=== PATIENT | male | born 1965 | race African-American/Black ===

== ENCOUNTER 2017-10-16 15:44 | Outpatient (CLI) | payer OTHER ==
[~2017-10-16 15:44] MED LIST: Magnevist 469MG/ML 20 ML VIAL ONE
--- NOTE | 2017-10-16 17:53 | MRI ---
MRI OF THE LUMBAR SPINE WITH CONTRAST: Indication: History of lumbar back pain. Comparison: MRI of the lumbar spine without contrast, 07-28-14. Technique: Multiplanar, multisequence MR images were obtained of the lumbar spine with contrast only. Insurance would not preapprove for a without examination. FINDINGS: No definite region of abnormal enhancement is demonstrated within the limitations of this exam. Visua lized retroperitoneum demonstrates surgical clips within the retroperitoneal region and appears simil ar to the comparison study. At L5-S1, there is a broad based disc osteophyte complex and facet degenerative change likely inducin g moderate to severe left and mild right neural foraminal narrowing. There is post-surgical change of a laminectomy at L5. At L4-5: There is a broad based bulge with facet hypertrophy inducing at least mild bilateral neural foraminal narrowing. Portions of the spinus process has been removed at L4. At L3-4: There is a mild broad based bulge with facet joint degenerative change inducing mild bilater al neural foraminal narrowing. At L2-3: There is a small suspected annular fissure. There is no appreciably neural foraminal or cent ral canal narrowing. At L1-2: No appreciable central canal or neural foraminal narrowing. At T12-L1: No appreciable central canal or neural foraminal narrowing. There is a 1.5 cm cyst seen within the left mid kidney. The right kidney is not well seen. IMPRESSION: Limited exam without the precontrast images. Without pre and post contrast images it is difficult to evaluate for abnormal enhancement as relative enhancement requires evaluation with a pre procedure MR examination. T2 weighted images are very useful in evaluating for central canal and neural foraminal narrowing as well as facet joint degenerative changes. T1 images without contrast are useful in eval uating background marrow changes. Would recommend consideration for repeat MR examination with and wi thout contrast. Multilevel spondylosis as above. POS: [facility]
== END 2017-10-16 15:45 | disposition home or self-care (01) ==
LOC: SCSMRI 15:44
PROVIDERS: ATTEND Physical Medicine & Rehabilitation
DX: M54.5 Low back pain (principal); M47.896 Other spondylosis, lumbar region
CPT/HCPCS: 72149; A9579

== ENCOUNTER 2018-03-15 12:34 | Outpatient (CLI) | payer OTHER, SELFPAY ==
[2018-03-15] MEDS ORDERED: Gadobenate Dimeglumine 529 MG/1 ML (20ML VIAL) ONE (13:15)
== END 2018-03-15 12:35 | disposition home or self-care (01) ==
LOC: BICMRI 12:34
PROVIDERS: ATTEND Physical Medicine & Rehabilitation
DX: M47.26 Other spondylosis with radiculopathy, lumbar region (principal); M48.061 Spinal stenosis, lumbar region without neurogenic claudication; M99.83 Other biomechanical lesions of lumbar region; M99.84 Other biomechanical lesions of sacral region; M48.07 Spinal stenosis, lumbosacral region; M48.8X7 Other specified spondylopathies, lumbosacral region; Z98.890 Other specified postprocedural states
CPT/HCPCS: 72158; A9579